=== PATIENT | male | born 1975 | race Caucasian/White ===

== ENCOUNTER 2017-03-13 15:05 | Inpatient (IN) | payer SELFPAY ==
[~2017-03-13] VITALS: Ht 160 cm; Wt 93.0 kg
[2017-03-13 17:02] LABS: BASOPHIL % 0.3 % (0-2); PLATELET COUNT 365 x10^3mcL (130-400); RED CELL DISTRIBUTION WIDTH 14.1 % (11.5-14.5)
[2017-03-13 17:12] LABS: CARBON DIOXIDE 24.6 mmol/L (21-32); CHLORIDE SERUM 100 mmol/L (98-107); GFR1 > 60 mL/min; GLUCOSE SERUM 103 mg/dL (74-106); POTASSIUM SERUM 3.9 mmol/L (3.5-5.1); SODIUM SERUM 137 mmol/L (136-145)
[2017-03-13 17:17] LABS: ALKALINE PHOSPHATASE 143 U/L (46-116); ALT/SGPT 77 U/L (16-63); AST/SGOT 40 U/L (15-37); BILIRUBIN TOTAL 1.31 mg/dL (0.20-1.00); LIPASE 131 IU/L (73-393)
[2017-03-13 17:18] LABS: TOTAL PROTEIN, SERUM 8.3 g/dL (6.4-8.2)
[2017-03-13 19:39] LABS: CHOLESTEROL/HDL RATIO 3.7; PHOSPHOROUS 2.3 mg/dL (2.5-4.9)
[2017-03-13 19:42] LABS: FREE T4 1.36 ng/dL (0.76-1.46); FREE THYROXINE INDEX 2.6 ug/dL (1.4-4.5); T4(THYROXINE) 6.8 ug/dL (4.7-13.3)
[2017-03-13 20:35] VITALS: BP 132/68
[2017-03-14 05:54] VITALS: BP 106/62
[2017-03-14 09:58] VITALS: BP 119/69
[2017-03-14 14:16] VITALS: BP 116/73
[2017-03-14 14:28] VITALS: BP 116/73
[2017-03-14 17:30] VITALS: BP 123/76
[2017-03-14 21:59] VITALS: BP 11/70
[2017-03-15 05:42] LABS: BASOPHIL % 0.1 % (0-2); PLATELET COUNT 353 x10^3mcL (130-400)
[2017-03-15 06:06] LABS: CALCIUM 8.4 mg/dL (8.5-10.1); CHLORIDE SERUM 103 mmol/L (98-107); GFR1 > 60 mL/min; GLUCOSE SERUM 105 mg/dL (74-106); PHOSPHOROUS 3.3 mg/dL (2.5-4.9); POTASSIUM SERUM 4.2 mmol/L (3.5-5.1); SODIUM SERUM 138 mmol/L (136-145)
[2017-03-15 06:11] VITALS: BP 124/66
[2017-03-15 09:48] VITALS: BP 123/78
[2017-03-15] MEDS ORDERED: LEVAQUIN750 MG PO (12:54)
[2017-03-15] MEDS ORDERED: FLAGYL500 MG PO (13:04)
[2017-03-15 13:39] VITALS: BP 123/78
== END 2017-03-15 14:22 | disposition home or self-care (01) | DRG 872 ==
LOC: ED 15:05 → DU 18:48
PROVIDERS: Emergency Medicine; Family Medicine; ADMIT Student in an Organized Health Care Education/Training Program
DX: A41.9 Sepsis, unspecified organism (principal); K57.80 Diverticulitis of intestine, part unspecified, with perforation and abscess without bleeding; E44.0 Moderate protein-calorie malnutrition; E83.39 Other disorders of phosphorus metabolism; E66.9 Obesity, unspecified; Z68.36 Body mass index [BMI] 36.0-36.9, adult
CPT/HCPCS: 82962; 83880; 84439; C9113; J1956; J2270; J2405; J2543; J3490; J7030; Q0092; Q9967

== ENCOUNTER 2017-10-02 22:17 | Inpatient (IN) | payer MEDICAID ==
[~2017-10-02] VITALS: Ht 160 cm; Wt 82.7 kg
[~2017-10-02 22:17] MED LIST: FLAGYL500 MG PO; LEVAQUIN750 MG PO
[2017-10-02 23:35] LABS: BASOPHIL % 0.2 % (0-2); CALCIUM 8.9 mg/dL (8.5-10.1); CARBON DIOXIDE 24.7 mmol/L (21-32); CHLORIDE SERUM 98 mmol/L (98-107); GFR1 > 60 mL/min; GLUCOSE SERUM 104 mg/dL (74-106); POTASSIUM SERUM 3.7 mmol/L (3.5-5.1); RED CELL DISTRIBUTION WIDTH 13.8 % (11.5-14.5); SODIUM SERUM 134 mmol/L (136-145)
[2017-10-02 23:36] LABS: PLATELET COUNT 558 x10^3mcL (130-400)
[2017-10-02 23:46] LABS: ALKALINE PHOSPHATASE 118 U/L (46-116); ALT/SGPT 29 U/L (16-63); AST/SGOT 15 U/L (15-37); BILIRUBIN TOTAL 0.8 mg/dL (0.20-1.00); TOTAL PROTEIN, SERUM 8.1 g/dL (6.4-8.2)
[2017-10-02 23:51] LABS: CK-MB < 0.5 ng/mL (0-3.6); CREATINE KINASE 51 U/L (39-308)
[2017-10-03 00:48] LABS: UA SPECIFIC GRAVITY 1.015 (1.005-1.035); microscopic required? YES; urine erythrocyte TRACE (NEGATIVE)
[2017-10-03 03:36] VITALS: BP 121/79
[2017-10-03 04:11] LABS: T3 TOTAL 0.84 ng/mL
[2017-10-03 04:13] LABS: FREE T4 1.26 ng/dL (0.76-1.46); FREE THYROXINE INDEX 2.5 ug/dL (1.4-4.5); T4(THYROXINE) 6.2 ug/dL (4.7-13.3)
[2017-10-03 04:39] LABS: CHOLESTEROL/HDL RATIO 4.4; MAGNESIUM 2.3 mg/dL (1.8-2.4); PHOSPHOROUS 2.2 mg/dL (2.5-4.9)
[2017-10-03 04:43] LABS: AMPHETAMINE QUAL UR NONE DETECTED (NEG <=1000)
[2017-10-03 07:12] LABS: BASOPHIL % 0.1 % (0-2); CALCIUM 8.9 mg/dL (8.5-10.1); CARBON DIOXIDE 23.5 mmol/L (21-32); CHLORIDE SERUM 98 mmol/L (98-107); CREATININE SERUM 0.9 mg/dL (0.7-1.3); GFR1 > 60 mL/min; GLUCOSE SERUM 121 mg/dL (74-106); RED CELL DISTRIBUTION WIDTH 13.8 % (11.5-14.5); SODIUM SERUM 133 mmol/L (136-145)
[2017-10-03 08:24] LABS: PLATELET COUNT 539 x10^3mcL (130-400)
[2017-10-03 09:18] VITALS: BP 114/73
[2017-10-03 12:45] VITALS: BP 127/72
[2017-10-03 16:54] VITALS: BP 133/81
[2017-10-03 22:08] VITALS: BP 109/67
[2017-10-04 05:56] VITALS: BP 115/68
[2017-10-04 07:17] LABS: CALCIUM 8.7 mg/dL (8.5-10.1); CARBON DIOXIDE 25.1 mmol/L (21-32); CHLORIDE SERUM 102 mmol/L (98-107); CREATININE SERUM 0.8 mg/dL (0.7-1.3); GFR1 > 60 mL/min; GLUCOSE SERUM 107 mg/dL (74-106); MAGNESIUM 2.2 mg/dL (1.8-2.4); PHOSPHOROUS 3.7 mg/dL (2.5-4.9); POTASSIUM SERUM 4.1 mmol/L (3.5-5.1); SODIUM SERUM 137 mmol/L (136-145)
[2017-10-04 07:18] LABS: BASOPHIL % 0 % (0-2); PLATELET COUNT 499 x10^3mcL (130-400)
[2017-10-04 09:39] VITALS: BP 105/63
[2017-10-04 10:02] VITALS: Ht 160 cm; Wt 82.7 kg
[2017-10-04 13:22] VITALS: BP 112/71
[2017-10-04 18:39] VITALS: BP 110/68
[2017-10-04 21:52] VITALS: BP 101/63
[2017-10-05 05:44] VITALS: BP 116/70
[2017-10-05 06:57] LABS: CALCIUM 8.2 mg/dL (8.5-10.1); CARBON DIOXIDE 25.4 mmol/L (21-32); CHLORIDE SERUM 102 mmol/L (98-107); CREATININE SERUM 0.8 mg/dL (0.7-1.3); GFR1 > 60 mL/min; GLUCOSE SERUM 117 mg/dL (74-106); MAGNESIUM 2.3 mg/dL (1.8-2.4); PHOSPHOROUS 3.2 mg/dL (2.5-4.9); POTASSIUM SERUM 3.9 mmol/L (3.5-5.1); SODIUM SERUM 138 mmol/L (136-145)
[2017-10-05 06:59] LABS: RED CELL DISTRIBUTION WIDTH 13.9 % (11.5-14.5)
[2017-10-05 07:04] LABS: BASOPHIL % 0 % (0-2)
[2017-10-05 07:05] LABS: PLATELET COUNT 628 x10^3mcL (130-400)
[2017-10-05 09:56] VITALS: BP 118/70
[2017-10-05] MEDS ORDERED: APAP/HYDROCODON1 T13 PO (12:03)
[2017-10-05] MEDS ORDERED: LEVAQUIN750 MG PO (12:25)
[2017-10-05] MEDS ORDERED: LAC PO (12:25)
[2017-10-05] MEDS ORDERED: FLA500 PO (12:25)
[2017-10-05 14:14] VITALS: BP 106/62
[2017-10-05 14:41] VITALS: BP 106/62
== END 2017-10-05 15:42 | disposition home or self-care (01) | DRG 710 ==
LOC: ED 22:17 → DU 10-03 03:11
PROVIDERS: Emergency Medicine; Family Medicine; Surgery
PROC: 0W9J3ZX Drainage of Pelvic Cavity, Percutaneous Approach, Diagnostic (ICD-10-PCS; 2017-10-04)
PROC: 0W9G3ZX Drainage of Peritoneal Cavity, Percutaneous Approach, Diagnostic (ICD-10-PCS; principal; 2017-10-04 10:30)
DX: A41.9 Sepsis, unspecified organism (principal); E44.0 Moderate protein-calorie malnutrition; K57.20 Diverticulitis of large intestine with perforation and abscess without bleeding; J98.11 Atelectasis; E66.9 Obesity, unspecified; R31.9 Hematuria, unspecified; Z68.32 Body mass index [BMI] 32.0-32.9, adult; Z86.73 Personal history of transient ischemic attack (TIA), and cerebral infarction without residual deficits
CPT/HCPCS: 83880; 84439; 87046; 87046-59; 94150; C1758; J0330; J0690; J1170; J1885; J1956; J2175; J2250; J2405; J2543; J2704; J2710; J3010; J3490; J7030; J7120; Q0092

== ENCOUNTER 2017-10-08 17:03 | Inpatient (IN) | payer MEDICAID ==
[~2017-10-08] VITALS: Ht 160 cm; Wt 82.5 kg
[~2017-10-08 17:03] MED LIST changes: +APAP/HYDROCODON1 T13 PO; +FLA500 PO; +LAC PO
[2017-10-08 17:59] LABS: microscopic required? NO
[2017-10-08 18:23] LABS: urine erythrocyte NEGATIVE (NEGATIVE)
[2017-10-08 19:22] LABS: BASOPHIL % 0.4 % (0-2)
[2017-10-08 19:31] LABS: CALCIUM 8.5 mg/dL (8.5-10.1); CARBON DIOXIDE 21.4 mmol/L (21-32); CHLORIDE SERUM 100 mmol/L (98-107); CREATININE SERUM 0.9 mg/dL (0.7-1.3); GFR1 > 60 mL/min; GLUCOSE SERUM 111 mg/dL (74-106); POTASSIUM SERUM 3.5 mmol/L (3.5-5.1); SODIUM SERUM 135 mmol/L (136-145)
[2017-10-08 19:35] LABS: ALKALINE PHOSPHATASE 89 U/L (46-116); ALT/SGPT 17 U/L (16-63); AMYLASE 28 U/L (25-115); AST/SGOT 16 U/L (15-37); BILIRUBIN TOTAL 0.63 mg/dL (0.20-1.00); LIPASE 100 IU/L (73-393); TOTAL PROTEIN, SERUM 7.3 g/dL (6.4-8.2)
[2017-10-08 19:43] LABS: ALBUMIN 2.7 g/dL (3.4-5.0)
[2017-10-08 19:47] LABS: PLATELET COUNT 752 x10^3mcL (130-400)
[2017-10-08 21:30] VITALS: BP 106/66
[2017-10-08 21:48] LABS: T3 TOTAL 0.65 ng/mL
[2017-10-08 22:00] LABS: MAGNESIUM 1.8 mg/dL (1.8-2.4); PHOSPHOROUS 2.2 mg/dL (2.5-4.9)
[2017-10-08 22:03] LABS: CHOLESTEROL/HDL RATIO 4.5
[2017-10-08 22:22] LABS: FREE T4 1.5 ng/dL (0.76-1.46); FREE THYROXINE INDEX 3.1 ug/dL (1.4-4.5); T4(THYROXINE) 7.4 ug/dL (4.7-13.3)
[2017-10-09 01:14] LABS: AMPHETAMINE QUAL UR NONE DETECTED (NEG <=1000)
[2017-10-09 05:41] VITALS: BP 101/61
[2017-10-09 08:04] LABS: CALCIUM 8.9 mg/dL (8.5-10.1); CARBON DIOXIDE 25.8 mmol/L (21-32); CHLORIDE SERUM 101 mmol/L (98-107); CREATININE SERUM 0.9 mg/dL (0.7-1.3); GFR1 > 60 mL/min; GLUCOSE SERUM 110 mg/dL (74-106); PHOSPHOROUS 4.5 mg/dL (2.5-4.9); POTASSIUM SERUM 3.7 mmol/L (3.5-5.1); SODIUM SERUM 136 mmol/L (136-145)
[2017-10-09 08:33] LABS: RED CELL DISTRIBUTION WIDTH 14.2 % (11.5-14.5)
[2017-10-09 08:34] LABS: BASOPHIL % 0 % (0-2); PLATELET COUNT 649 x10^3mcL (130-400)
[2017-10-09 10:41] VITALS: BP 108/69
[2017-10-09 12:39] VITALS: BP 121/75
[2017-10-09 14:56] LABS: IRON 22 ug/dL (65-170); TOTAL IRON BINDING CAPACITY 129 ug/dL (250-450)
[2017-10-09 15:12] LABS: RED BLOOD CELLS 3.79 M/mm3 (4.52-5.90)
[2017-10-09 17:10] VITALS: BP 109/64
[2017-10-09 20:28] VITALS: BP 113/66
[2017-10-10 05:17] VITALS: BP 108/63
[2017-10-10 05:59] LABS: RED CELL DISTRIBUTION WIDTH 14.1 % (11.5-14.5)
[2017-10-10 06:34] LABS: CALCIUM 8.1 mg/dL (8.5-10.1); CARBON DIOXIDE 25.7 mmol/L (21-32); CHLORIDE SERUM 100 mmol/L (98-107); CREATININE SERUM 0.9 mg/dL (0.7-1.3); GFR1 > 60 mL/min; GLUCOSE SERUM 113 mg/dL (74-106); PHOSPHOROUS 3.6 mg/dL (2.5-4.9); POTASSIUM SERUM 3.8 mmol/L (3.5-5.1); SODIUM SERUM 135 mmol/L (136-145)
[2017-10-10 06:40] LABS: BASOPHIL % 0 % (0-2); PLATELET COUNT 617 x10^3mcL (130-400)
[2017-10-10 09:44] VITALS: BP 110/66
[2017-10-10 13:35] VITALS: BP 121/75
[2017-10-10 15:20] VITALS: BP 119/71
[2017-10-10 17:51] VITALS: BP 125/77
[2017-10-10 21:31] VITALS: BP 100/58
[2017-10-11 05:17] VITALS: BP 118/71
[2017-10-11 06:47] LABS: CALCIUM 8.6 mg/dL (8.5-10.1); CHLORIDE SERUM 97 mmol/L (98-107); CREATININE SERUM 0.8 mg/dL (0.7-1.3); GFR1 > 60 mL/min; GLUCOSE SERUM 107 mg/dL (74-106); MAGNESIUM 2.2 mg/dL (1.8-2.4); PHOSPHOROUS 3.2 mg/dL (2.5-4.9); POTASSIUM SERUM 3.4 mmol/L (3.5-5.1); SODIUM SERUM 131 mmol/L (136-145)
[2017-10-11 06:54] LABS: RED CELL DISTRIBUTION WIDTH 14.1 % (11.5-14.5)
[2017-10-11 07:20] LABS: BASOPHIL % 0 % (0-2); PLATELET COUNT 627 x10^3mcL (130-400)
[2017-10-11 17:20] VITALS: BP 114/69
[2017-10-11 19:20] VITALS: BP 100/61
[2017-10-12] VITALS (7 sets, daily range): BP systolic 96–151; BP diastolic 59–79
[2017-10-12 06:17] LABS: RED CELL DISTRIBUTION WIDTH 14.5 % (11.5-14.5)
[2017-10-12 06:39] LABS: CALCIUM 8.3 mg/dL (8.5-10.1); CARBON DIOXIDE 23.2 mmol/L (21-32); CHLORIDE SERUM 100 mmol/L (98-107); CREATININE SERUM 0.8 mg/dL (0.7-1.3); GFR1 > 60 mL/min; GLUCOSE SERUM 100 mg/dL (74-106); MAGNESIUM 2.1 mg/dL (1.8-2.4); PHOSPHOROUS 2.9 mg/dL (2.5-4.9); POTASSIUM SERUM 4.1 mmol/L (3.5-5.1); SODIUM SERUM 135 mmol/L (136-145)
[2017-10-12 06:46] LABS: BASOPHIL % 0 % (0-2)
[2017-10-12 08:11] LABS: PLATELET COUNT 618 x10^3mcL (130-400)
[2017-10-13 05:41] VITALS: BP 127/77
[2017-10-13 07:16] LABS: CALCIUM 8.6 mg/dL (8.5-10.1); CARBON DIOXIDE 24.9 mmol/L (21-32); CHLORIDE SERUM 101 mmol/L (98-107); CREATININE SERUM 0.8 mg/dL (0.7-1.3); GFR1 > 60 mL/min; GLUCOSE SERUM 106 mg/dL (74-106); MAGNESIUM 2.2 mg/dL (1.8-2.4); PHOSPHOROUS 3.2 mg/dL (2.5-4.9); SODIUM SERUM 136 mmol/L (136-145)
[2017-10-13 07:53] LABS: RED CELL DISTRIBUTION WIDTH 14.5 % (11.5-14.5)
[2017-10-13 07:54] LABS: BASOPHIL % 0 % (0-2); PLATELET COUNT 624 x10^3mcL (130-400)
[2017-10-13 10:25] VITALS: BP 123/76
[2017-10-13 17:15] VITALS: BP 104/64
[2017-10-13 21:41] VITALS: BP 122/78
[2017-10-14 05:24] VITALS: BP 142/88
[2017-10-14 06:52] LABS: BASOPHIL % 0.1 % (0-2); RED CELL DISTRIBUTION WIDTH 14.4 % (11.5-14.5)
[2017-10-14 07:05] LABS: CALCIUM 8.5 mg/dL (8.5-10.1); CARBON DIOXIDE 21.9 mmol/L (21-32); CHLORIDE SERUM 100 mmol/L (98-107); CREATININE SERUM 0.8 mg/dL (0.7-1.3); GFR1 > 60 mL/min; GLUCOSE SERUM 99 mg/dL (74-106); MAGNESIUM 2.1 mg/dL (1.8-2.4); PHOSPHOROUS 3.5 mg/dL (2.5-4.9); POTASSIUM SERUM 3.7 mmol/L (3.5-5.1); SODIUM SERUM 135 mmol/L (136-145)
[2017-10-14 08:16] VITALS: BP 108/67
[2017-10-14 08:22] LABS: PLATELET COUNT 638 x10^3mcL (130-400)
[2017-10-14 10:28] VITALS: Ht 160 cm; Wt 82.5 kg
[2017-10-14 13:41] VITALS: BP 125/79
[2017-10-14] MEDS ORDERED: COLACE100 MG PO (14:49)
[2017-10-14] MEDS ORDERED: NORCO1 TA1 PO (14:49)
[2017-10-14] MEDS ORDERED: BACTRIM DS1 TAB PO (14:49)
[2017-10-14] MEDS ORDERED: LAC PO (14:49)
== END 2017-10-14 15:15 | disposition left against medical advice (07) | DRG 710 ==
LOC: ED 17:03 → DU 19:45 → MU 19:45 → DU 21:10 → MU 10-10 07:49
PROVIDERS: Emergency Medicine; Family Medicine; Internal Medicine Gastroenterology; Student in an Organized Health Care Education/Training Program
PROC: 0W9G3ZX Drainage of Peritoneal Cavity, Percutaneous Approach, Diagnostic (ICD-10-PCS; 2017-10-09)
PROC: 0DJD8ZZ Inspection of Lower Intestinal Tract, Via Natural or Artificial Opening Endoscopic (ICD-10-PCS; principal; 2017-10-11 09:30)
DX: A41.9 Sepsis, unspecified organism (principal); E43 Unspecified severe protein-calorie malnutrition; E87.8 Other disorders of electrolyte and fluid balance, not elsewhere classified; K57.20 Diverticulitis of large intestine with perforation and abscess without bleeding; E83.39 Other disorders of phosphorus metabolism; E87.1 Hypo-osmolality and hyponatremia; B96.20 Unspecified Escherichia coli [E. coli] as the cause of diseases classified elsewhere; K64.8 Other hemorrhoids; D64.9 Anemia, unspecified; D47.3 Essential (hemorrhagic) thrombocythemia; E66.9 Obesity, unspecified; Z68.32 Body mass index [BMI] 32.0-32.9, adult; Z16.24 Resistance to multiple antibiotics
CPT/HCPCS: 45378; 82962; 83880; 84439; 94150; C1729; J1170; J1200; J1610; J1885; J1956; J2001; J2250; J2270; J2310; J2405; J2543; J3010; J3490; J7030; Q9967